=== PATIENT | male | born 1970 | race Caucasian/White ===

== ENCOUNTER 2017-03-28 14:56 | Inpatient (IN) ==
--- NOTE | 2017-03-28 15:54 | CT Report ---
CT head/brain wo con Indication: Headache Comparison: None Technique: Multiple axial tomographic images of the brain were obtained without the use of intravenous contrast. Findings: Midline structures are nondisplaced. There is no evidence of acute intracranial hemorrhage or hydrocephalus. Moderate periventricular and subcortical hypoattenuation noted which is nonspecific but consistent with chronic microvascular ischemic change. Demyelinating process and vasculitis less likely considerations. The visualized paranasal sinuses and bilateral mastoid air cells are essentially clear. IMPRESSION: No acute intracranial hemorrhage demonstrated. Moderate periventricular and subcortical hypoattenuation noted which is nonspecific but consistent with chronic microvascular ischemic change. Demyelinating process and vasculitis less likely considerations. The CT exam was performed using one or more of the following dose reduction techniques: Automated exposure control, adjustment of the mA and/or kV according to patient size, or use of iterative reconstruction technique. PROCEDURE INTERPRETED AT [facility] DEPARTMENT OF RADIOLOGY Final Report Signed by: Dr Venkata Harper
--- NOTE | 2017-03-28 15:56 | XRay Report ---
XR chest 2V Indication: Hypertension Comparison: Chest x-ray dated June 18, 2012 Technique: Frontal and lateral views of the chest. Findings: Borderline cardiomegaly. Chronic change of the lungs without focal consolidation, pleural effusion, or pneumothorax. This includes left infrahilar scarring. Visualized osseous and surrounding soft tissue structures appear grossly unchanged. IMPRESSION: As above. PROCEDURE INTERPRETED AT [facility] DEPARTMENT OF RADIOLOGY Final Report Signed by: Dr Venkata Harper
[2017-03-28 15:57] LABS: Basophils % 0.4 % (0.0-0.8); Eosinophils # 0.2 10*3/uL (0.0-0.87); Eosinophils % 2.2 % (0.00-10.9); Hematocrit 41.2 VOL% (42.0-52.0); Hemoglobin 15.3 GM/DL (14.0-18.0); Immature Granulocytes % 0.3 %; Immature Granulocytes Absolute 0.02 #; Lymphocytes % 13.7 % (21.2-54.2); Mean Corpuscular HGB Conc 37.1 GM/DL (32-36); Mean Corpuscular Hemoglobin 30 PG (27-34); Mean Corpuscular Volume 81.7 FL (87-102); Mean Platelet Volume 9.1 FL (9.6-12.0); Monocytes # 0.5 10*3/uL (0.11-0.8); Neutrophils # 5.7 10*3/uL (1.4-7.4); Neutrophils % 76.4 % (38.7-73.9); Platelet Count 177 T/CUMM (130-400); Red Blood Count 5.04 MC/CUMM (3.8-5.5); Red Cell Distribution Width 13.2 % (9.3-17.3); White Blood Count 7.4 T/CUMM (4-12)
[2017-03-28] MEDS ORDERED: niCARdipine 25 MG/10 ML VIAL IV ONE (15:59)
[2017-03-28 16:13] LABS: Calcium 8.9 MG/DL (8.5-10.1); Osmolality,Calculated 278.8 MOS/KG (273-304); Potassium 3.3 MMOL/L (3.5-5.1)
[2017-03-28] MEDS: niCARdipine INJ 50 MG in SODIUM CHLORIDE 0.9% 230 ML IV SCH (16:14)
--- NOTE | 2017-03-28 17:07 | Emergency Department Note ---
Michael Garcia Mantricia, am scribing for, and in the presence of, Jp Ghosh MD 15:47. Davina Garcia Phillip K, MD, personally performed the services described in this documentation, ascribed by Ankur Rodriguez in my presence, and it is both accurate and complete [id number] . Arrival - Arrival Chief Complaint: Blood Pressure Stated Complaint: elevated blood pressure refer Dr. Mancuso ED Nursing Triage Note: Pt sent from [facility] for HTN. Pt was being seen for sinus trouble. Pt was on HTN meds at one time but not at the present. Mode of Arrival: Ambulatory Limitations: No Limitations Source: Patient Time Seen by Provider: 03/28/17 15:19 - History of Present Illness HPI Narrative: Pt is a 46 y/o white male arriving to ED from [facility] for evaluation of elevated blood pressure that onset today. Pt was seen at [place] originally for sinus congestion; however, while he was there, they noticed that pt's blood pressure was extremely high. Dr. Mancuso placed pt on blood pressure medications 2-3 years ago. After a month of taking the medications, pt states that he stopped taking them because his blood pressure became normal again. He reports that he has been trying to obtain a healthy blood pressure so he stopped spicy foods and smoking. Pt reports that he has taken Sudafed and Rexall for his sinus congestion, which might have elevated his pressure. At time of consult, pt's blood pressure is 237/170. He reports no other complaints to ED. Onset (ago): hour(s) Allergies/Adverse Reactions: Allergies Allergy/AdvReac Type Severity Reaction Status Date / Time No Known Allergies Allergy Verified 03/28/17 15:11 Home Medications: Home Medications Medication Instructions Recorded Confirmed Type No Known Home Medications [No 03/28/17 03/28/17 History Known Home Medications] Review of System - Review of System 12 point system: reviewed and no additional remarkable complaints except as stated - Review of System Constitutional: Present: other (elevated blood pressure ) Eyes: Absent: discharge, pain Respiratory: Absent: cough, respiratory distress, wheezing Cardiovascular: Absent: chest pain Gastrointestinal: Absent: abdominal pain, nausea, vomiting, diarrhea Medical,Surgical,& Family Hx - Medical History Cardio: History of: Hypertension (No meds) - Social History Smoking Status: Current some day smoker Frequency of Alcohol Use: Occasionally Exam Vital Signs: Vital Signs Temperature 97.3 F L 03/28/17 15:05 Pulse Rate 115 H 03/28/17 16:15 Respiratory Rate 16 03/28/17 16:15 Blood Pressure 203/155 03/28/17 16:15 O2 Sat by Pulse Oximetry 98 03/28/17 16:15 - General General appearance: alert, in no apparent distress - Head Head exam: Present: atraumatic, normocephalic, normal inspection - Eye Eye exam: Present: normal appearance, PERRL, EOMI - ENT ENT exam: Present: normal exam, normal oropharynx, mucous membranes moist, TM's normal bilaterally, normal external ear exam - Neck Neck exam: Present: normal inspection, full ROM, trachea midline. Absent: tenderness - Chest Chest inspection: Present: normal inspection, symmetric chest wall rise. Absent : tenderness - Respiratory Respiratory exam: Present: normal lung sounds bilaterally - Cardiovascular Cardiovascular exam: Present: normal rhythm, tachycardia, normal heart sounds - Abdominal Exam Abdominal exam: Present: soft, normal bowel sounds. Absent: distention, tenderness, guarding, rebound - Extremities Exam Extremities exam: Present: normal inspection, full ROM, normal capillary refill. Absent: tenderness, pedal edema - Back Exam Back exam: Present: normal inspection, full ROM. Absent: tenderness - Neurological Exam Neurological exam: Present: alert, oriented X3, CN II-XII intact, normal gait, reflexes normal - Psychiatric Psychiatric exam: Present: normal affect, normal mood - Skin Skin exam: Present: warm, dry, intact, normal color Course Course Narrative: Patient will be admitted to the hospitalist. Results - Labs CBC & BMP: 03/28/17 15:34 03/28/17 15:34 Lab Results: I have reviewed the patients labs - Diagnostic Findings Procedure: CT: report reviewed by me (No acute intracranial hemorrhage.) Disposition Clinical Impression: Hypertensive emergency, Chronic renal failure Case discussed with: patient Disposition: Still a Patient Condition: Guarded
--- NOTE | 2017-03-28 17:11 | Hospitalist History & Physical ---
<Eliana Willis Celestine - Last Filed: 03/28/17 17:09> Assessment and Plan (1) Hypertensive emergency Status: Acute Assessment and plan: coreg 6.25 mg po bid, cardene to keep systolic 160 to 180, tsh Current Visit: Yes (2) Hypokalemia Status: Acute Assessment and plan: replacing Current Visit: Yes (3) Acute renal failure Status: Acute Assessment and plan: renal us, 1/2 ns Current Visit: Yes History of Present Illness Chief complaint: sinus headache History of present illness: Mr. Meza is a 46 year old male white male arriving to ED from [facility] for evaluation of elevated blood pressure that onset today. Pt was seen at [place] originally for sinus congestion; however, while he was there, they noticed that pt's blood pressure was extremely high. Dr. Mancuso placed pt on blood pressure medications 2-3 years ago. After a month of taking the medications, pt states that he stopped taking them because his blood pressure became normal again. He reports that he has been trying to obtain a healthy blood pressure so he stopped spicy foods and smoking. Pt reports that he has taken Sudafed and Rexall for his sinus congestion, which might have elevated his pressure. At time of consult, pt's blood pressure is 237/170. He [place] and has been on a vodka drinking binge, but reports no drinking problems and withdrawal seizures. Home Medications Medication Instructions Recorded Confirmed Type No Known Home Medications [No 03/28/17 03/28/17 History Known Home Medications] Allergies Allergy/AdvReac Type Severity Reaction Status Date / Time No Known Allergies Allergy Verified 03/28/17 15:11 Medical,Surgical,& Family Hx - Medical History Cardio: History of: Hypertension (No meds) - Surgical History Additional Surgical History: none - Family History Family History: Reports;: Family Heart Disease - Social History Smoking Status: Current some day smoker Frequency of Alcohol Use: Occasionally Type of Drug Use: None Marital Status: Single Lives With:: Alone Functional capacity: independent ambulation - EENT Nose, mouth and throat: Present: headache(s). Absent: sore throat - Cardiovascular Cardiovascular: Absent: chest pain at rest, dyspnea, dyspnea on exertion, edema - Respiratory Respiratory: Absent: dyspnea, dyspnea on exertion Exam - Constitutional Vitals: Period Temp Pulse Resp BP Sys/Dale Pulse Ox Last 24 Hr 97.3 F-97.3 F 108-115 16-18 203-235/155-178 97-98 General appearance: normal weight, no acute distress - Head Head exam: Present: normal inspection, normocephalic - Eye Eye exam: Present: EOMI. Absent: scleral icterus Pupils: Present: ALEKSANDR, normal accommodation - ENT ENT exam: Present: normal exam, normal external ear exam - Neck Neck exam: Absent: lymphadenopathy, thyromegaly - Respiratory Respiratory exam: Present: clear to auscultation bilaterally. Absent: rhonchi, wheezes - Cardiovascular Cardiovascular exam: Present: regular rate and rhythm. Absent: systolic murmur - GI/Abdominal GI/Abdominal exam: Present: normal bowel sounds, soft. Absent: tenderness - Extremities Exam Extremities exam: Present: normal inspection, normal capillary refill - Neurological Exam Neurological exam: Present: alert, oriented X3, CN II-XII intact, reflexes normal. Absent: motor sensory deficit - Psychiatric Psychiatric exam: Present: normal affect, normal mood - Skin Skin exam: Present: normal color, warm Results - Labs CBC & BMP: 03/28/17 15:34 03/28/17 15:34 Lab Results: I have reviewed the past 24 hour labs - Diagnostic Findings Procedure: Chest x-ray: report reviewed by me (CM), CT: report reviewed by me ( Head microischemic dz ) <Hong Galvez - Last Filed: 03/28/17 17:41> History of Present Illness History of present illness: Mr. Meza is a 46 year old male Medical,Surgical,& Family Hx - Social History Marital Status: Lives With:: Spouse - Constitutional Constitutional: Absent: headache(s), weakness - Respiratory Respiratory: Present: cough - Gastrointestinal Gastrointestinal: Absent: abdominal pain, change in bowel habits, nausea, vomiting - Genitourinary Genitourinary: Absent: difficulty urinating, flank pain - Musculoskeletal Musculoskeletal: Absent: back pain, muscle weakness - Neurological Neurological: Absent: abnormal gait, abnormal speech, dizziness, numbness, syncope - Psychiatric Psychiatric: Absent: anxiety, depression - Endocrine Endocrine: Absent: cold intolerance, fatigue, heat intolerance - Hematologic/Lymphatic Hematologic/Lymphatic: Absent: easy bleeding, easy bruising Exam - Constitutional Vitals: Period Temp Pulse Resp BP Sys/Dale Pulse Ox Last 24 Hr 97.3 F-97.3 F 97-115 16-18 163-235/99-178 97-100 - Skin Skin exam: Present: dry Results - Labs CBC & BMP: 03/28/17 15:34 03/28/17 15:34
[2017-03-28] MEDS ORDERED: ENOXAPARIN 30 MG/0.3 ML SYRINGE SUBCUT SCH (17:18)
[2017-03-28] MEDS ORDERED: ZALEPLON 5 MG CAPSULE PO PRN (17:18)
[2017-03-28] MEDS ORDERED: ONDANSETRON 4 MG/2 ML VIAL IV PRN (17:18)
[2017-03-28] MEDS ORDERED: POTASSIUM CHLORIDE 20 MEQ TABLET PO ONE (17:18)
[2017-03-28] MEDS ORDERED: ACETAMINOPHEN 325 MG TABLET PO PRN (17:18)
[2017-03-28] MEDS ORDERED: BISACODYL 5 MG TABLET PO PRN (17:18)
[2017-03-28] MEDS: CARVEDILOL 6.25 MG TABLET PO SCH ×2 (17:49→21:35)
[2017-03-28] MEDS: SODIUM CHLORIDE 0.45% 1,000 ML IV SCH (17:53)
--- NOTE | 2017-03-28 19:47 | Ultrasound Report ---
US renal Bilateral Indication: Acute renal failure. RENAL ULTRASOUND: Grayscale and color Doppler imaging the kidneys performed. Right kidney measures 94 x 52 x 58 mm. Left kidney measures 102 x 52 x 52 mm. Anechoic 10 x 11 x 8 mm cyst is present midpole left kidney. No hydronephrosis, mass, or calcification identified on either side. Color Doppler flow at both renal alphonse documented. Both kidneys demonstrate diffuse heterogeneity in the echotexture of the renal cortex is increased throughout. Impression: Left renal cyst. Diffuse increased echotexture of the kidneys suggests medical renal disease. No obstructive pathology. PROCEDURE INTERPRETED AT [facility] DEPARTMENT OF RADIOLOGY Final Report Signed by: Reji Akers M.D.
[2017-03-28 21:44] LABS: Apearance,Urine CLEAR (Clear); Bilirubin,Urine Negative (Negative); Blood, Urine Negative (Negative); Glucose,Urine (UA) 50 mg/dL (Negative); Ketones,Urine Negative (Negative); Mucus,Urine Occasional /LPF (Occasional); Nitrite,Urine Negative (Negative); Protein,Urine 100 MG/DL; RBC,Urine <1 /HPF (0-4); Urine Color Straw (Yellow); Urine Specific Gravity 1.006 (1.001-1.035); Urine Urobilinogen < 2.0 EU/DL (0.2-1.0); WBC,Urine <1 /HPF (0-6)
[2017-03-29] MEDS: SODIUM CHLORIDE 0.45% 1,000 ML IV SCH ×3 (02:12→09:17)
[2017-03-29 05:05] LABS: Calcium 8.9 MG/DL (8.5-10.1); Potassium 3.7 MMOL/L (3.5-5.1); Risk Ratio 4.41; VLDL CHOLESTEROL 27.2 MG/DL
[2017-03-29] MEDS ORDERED: niCARdipine 25 MG/10 ML VIAL IV ONE (06:36)
[2017-03-29] MEDS: niCARdipine INJ 50 MG in SODIUM CHLORIDE 0.9% 230 ML IV SCH (06:47)
[2017-03-29] MEDS ORDERED: KETOROLAC 30 MG/1 ML VIAL IV ONE (08:29)
[2017-03-29] MEDS ORDERED: MEPERIDINE 25 MG/1 ML VIAL IM ONE (08:29)
[2017-03-29] MEDS ORDERED: PANTOPRAZOLE 40 MG TABLET PO SCH (09:00)
[2017-03-29] MEDS ORDERED: FOLIC ACID 1 MG TABLET PO SCH (09:00)
[2017-03-29] MEDS ORDERED: THIAMINE 100 MG TABLET PO SCH (09:00)
[2017-03-29] MEDS: CARVEDILOL 6.25 MG TABLET PO SCH (09:09)
--- NOTE | 2017-03-29 09:51 | Discharge Summary ---
Hospital Course - Hospital Course Hospital Course: 46 yo CM with a history of HTN present with malignant hypertension with 230/176 and was placed on a cardene drip. Coreg 6.25 mg po bid started. Patient had a Cr of 3.1. Renal ultrasound showed medical renal disease. Cr decreased to 2 with hydration. He will be discharged home with followup with Dr. Dennis in one week. - Time spent with patient Time with patient DS: Less than 30 minutes (25 min) Diagnosis - Discharge Diagnosis (1) Hypertensive emergency Status: Acute (2) Hypokalemia Status: Acute (3) Acute renal failure Status: Acute Discharge Plan - Discharge Data Disposition: Disch To Home/Self Care Condition at Discharge: Stable Discharge Diet: heart healthy Activity: resume usual activities as tolerated Hygiene: no restrictions Weight Bearing at Discharge: full weight bearing Driving: no restrictions Contact your physician if you experience:: fever over 101 - Discharge Medications New Thiamine Tab [Vitamin B1 Tab] 100 mg PO DAILY tablet Carvedilol [Coreg] 6.25 mg PO BID #30 tablet Folic Acid Tab 1 mg PO DAILY tablet - Follow Up or Referral Follow Up: Dr Sonny [Other] - 1 Week - Forms/Instructions Exam - Constitutional Vitals: Period Temp Pulse Resp BP Sys/Dale Pulse Ox Last 24 Hr 97.3 F-98.2 F 80-116 12-22 96-235/51-178 94-100 General appearance: normal weight, no acute distress - Head Head exam: Present: normal inspection, normocephalic - Respiratory Respiratory exam: Present: clear to auscultation bilaterally. Absent: rhonchi, wheezes - Cardiovascular Cardiovascular exam: Present: regular rate and rhythm. Absent: systolic murmur - GI/Abdominal GI/Abdominal exam: Present: normal bowel sounds, soft. Absent: tenderness - Extremities Exam Extremities exam: Present: normal inspection, normal capillary refill - Neurological Exam Neurological exam: Present: alert, oriented X3 - Psychiatric Psychiatric exam: Present: normal affect, normal mood Discharge Results Procedures and tests throughout hospitalization: Pending Orders 03/30/17 04:00 Basic Metabolic Panel IN AM 03/31/17 04:00 Basic Metabolic Panel IN AM Labs on day of discharge: Labs from last 24 hours 03/29/17 03/28/17 03/28/17 03:57 21:20 15:45 WBC RBC Hgb Hct MCV MCH MCHC RDW Plt Count MPV Neut % (Auto) Lymph % (Auto) Graves % (Auto) Eos % (Auto) Baso % (Auto) Neut # (Auto) Lymph # (Auto) Graves # (Auto) Eos # (Auto) Baso # (Auto) Immature Gran % Nucleated RBC % Immature Gran # Nucleated RBCs # Sodium 136 Potassium 3.7 Chloride 103 Carbon Dioxide 29 Anion Gap 7.7 BUN 27 H Creatinine 2.00 H GFR Calculation 44 BUN/Creatinine Ratio 13.00 Glucose 113 H Hemoglobin A1c Calculated Osmolality 277.0 Calcium 8.9 Total Creatine Kinase 333 H Triglycerides 136 Cholesterol 225 H LDL Cholesterol 159.0 VLDL Cholesterol 27.2 HDL Cholesterol 51 Heart Disease Risk Ratio 4.41 Free T4 TSH 3rd Generation Urine Color Straw Urine Appearance Clear Urine pH 7.0 Ur Specific [place] 1.006 Urine Protein 100 Urine Glucose (UA) 50 Urine Ketones Negative Urine Blood Negative Urine Nitrate Negative Urine Bilirubin Negative Urine Urobilinogen < 2.0 H Urine Leukocytes Negative Urine RBC <1 Urine WBC <1 Urine Mucus Occasional Ur Culture Indicated? Not indicated 03/28/17 03/28/17 03/28/17 15:45 15:45 15:45 WBC RBC Hgb Hct MCV MCH MCHC RDW Plt Count MPV Neut % (Auto) Lymph % (Auto) Graves % (Auto) Eos % (Auto) Baso % (Auto) Neut # (Auto) Lymph # (Auto) Graves # (Auto) Eos # (Auto) Baso # (Auto) Immature Gran % Nucleated RBC % Immature Gran # Nucleated RBCs # Sodium Potassium Chloride Carbon Dioxide Anion Gap BUN Creatinine GFR Calculation BUN/Creatinine Ratio Glucose Hemoglobin A1c 4.8 Calculated Osmolality Calcium Total Creatine Kinase Triglycerides Cholesterol LDL Cholesterol VLDL Cholesterol HDL Cholesterol Heart Disease Risk Ratio Free T4 0.85 TSH 3rd Generation 3.440 Urine Color Urine Appearance Urine pH Ur Specific [place] Urine Protein Urine Glucose (UA) Urine Ketones Urine Blood Urine Nitrate Urine Bilirubin Urine Urobilinogen Urine Leukocytes Urine RBC Urine WBC Urine Mucus Ur Culture Indicated? 03/28/17 03/28/17 15:34 15:34 WBC 7.4 RBC 5.04 Hgb 15.3 Hct 41.2 L MCV 81.7 L MCH 30 MCHC 37.1 H RDW 13.2 Plt Count 177 MPV 9.1 L Neut % (Auto) 76.4 H Lymph % (Auto) 13.7 L Graves % (Auto) 7.0 Eos % (Auto) 2.2 Baso % (Auto) 0.4 Neut # (Auto) 5.7 Lymph # (Auto) 1.0 L Graves # (Auto) 0.5 Eos # (Auto) 0.2 Baso # (Auto) 0.0 Immature Gran % 0.3 Nucleated RBC % 0.0 Immature Gran # 0.02 Nucleated RBCs # 0.00 Sodium 137 Potassium 3.3 L Chloride 99 Carbon Dioxide 28 Anion Gap 13.3 BUN 30 H Creatinine 3.10 H GFR Calculation 26 BUN/Creatinine Ratio 9.00 Glucose 99 Hemoglobin A1c Calculated Osmolality 278.8 Calcium 8.9 Total Creatine Kinase Triglycerides Cholesterol LDL Cholesterol VLDL Cholesterol HDL Cholesterol Heart Disease Risk Ratio Free T4 TSH 3rd Generation Urine Color Urine Appearance Urine pH Ur Specific [place] Urine Protein Urine Glucose (UA) Urine Ketones Urine Blood Urine Nitrate Urine Bilirubin Urine Urobilinogen Urine Leukocytes Urine RBC Urine WBC Urine Mucus Ur Culture Indicated? DS: Provider Date of admission: 03/28/17 15:48 Primary care physician: . No PCP Attending physician on admission: Eliana Willis MD Discharging clinician: Eliana Willis MD
[2017-03-29 12:14] VITALS: BP 114/74
--- NOTE | 2017-03-29 14:17 | ECHO Report ---
Reddy Meza Exam Date: 03/29/2017 09:01 Referring Physician: Technologist: nael Avendaño ARDMS, RVT Age: 46 Ht (in): 70 Wt (lb): 174 Gender: M Exam Location: [facility] Echo Indications: Shortness of breath, Essential (primary) hypertension, CRF, Hypokalemia BP: 130 / 83 HR: 82 Rhythm: Sinus Technical Quality: IMPRESSIONS Left ventricular size and function is normal with an ejection fraction estimated at 55-60%. There is mild to moderate concentric left ventricular hypertrophy with mild diastolic dysfunction. Mild bilateral atrial enlargement. Mildly thickened mitral leaflets with mild to moderate mitral regurgitation. Mild tricuspid regurgitation. MEASUREMENTS (Male / Female) Normal Values 2D ECHO LV Diastolic Diameter PLAX 4.6 cm 4.2 - 5.9 / 3.9 - 5.3 cm LV Systolic Diameter PLAX 3.4 cm LV Fractional Shortening PLAX 27.2 % IVS Diastolic Thickness 1.8 cm 0.6 - 1.0 / 0.6 - 0.9 cm LVPW Diastolic Thickness 1.8 cm 0.6 - 1.0 / 0.6 - 0.9 cm RV Internal Dim ED PLAX 3.5 cm Aortic Root Diameter 3.3 cm LA Systolic Diameter LX 3.8 cm 3.0 - 4.0 / 2.7 - 3.8 cm DOPPLER TR Peak Velocity 270.0 cm/s TR Peak Gradient 29.2 mmHg FINDINGS Left Ventricle Left ventricular size and function is normal with an ejection fraction estimated at 55-60%. There is mild to moderate concentric left ventricular hypertrophy with mild diastolic dysfunction. Right Ventricle Normal right ventricular size and function. Right Atrium Mild right atrial enlargement. Left Atrium Mild left atrial enlargement. Mitral Valve Mildly thickened mitral leaflets with mild to moderate mitral regurgitation. Aortic Valve Structurally normal aortic valve. Tricuspid Valve Structurally normal tricuspid valve with mild tricuspid regurgitation. Pulmonic Valve Poorly visualized Pericardium Normal pericardium Aorta Normal proximal aortic root Aamir Fisher (Electronically Signed) Final Date: 29 March 2017 14:16
== END 2017-03-29 12:10 | disposition home or self-care (01) | DRG 305 ==
LOC: N.ED 14:56 → N.EDINP 15:48 → N.CC 16:29
PROVIDERS: ADMIT Internal Medicine; ATTEND Internal Medicine